=== PATIENT | male | born 1965 | race Caucasian/White ===

== ENCOUNTER 2025-10-13 09:13 | Emergency (ER) | payer MEDICARE, SELFPAY ==
[2025-10-13 09:15] VITALS: BP 137/80; PULSE 92; RESP 18; TEMP 36.4; O2SAT 99
[2025-10-13 09:35] VITALS: BMI 22.7
--- NOTE | 2025-10-13 09:58 | ED.VIS.LOWEX ---
HPI History of Present Illness Chief Complaint: Lower Extremity Injury Informant: patient Narrative Narrative: 60-year-old male with episodic right lateral knee pain and popping, starting this morning when rolling over in bed. Patient reports when it ?pops,? he cannot bear weight. Pain consistently localized to the lateral right knee, sometimes radiating down the lateral mid-lower leg. Prior similar episodes years ago, including locking after intense biking, running uphill, and crouching; took 30 minutes to straighten the leg and later heard a pop allowing motion. Denies pain with foot manipulation during exam and denies pain superior to the knee. Concern that the knee may ?catch.? No recent major trauma reported. [facility] Medical History Neuropathy Home Medications ?Medication ?Instructions ?Recorded ?Last Taken ?Type gabapentin 600 mg tablet 600 mg PO TID PRN neuropathy 10/13/25 Unknown History Allergy/AdvReac Type Severity Reaction Status Date / Time No Known Allergies Allergy Verified 10/13/25 09:17 Social History Smoking Status: Never smoker ROS ROS ED Constitutional Constitutional ED: Denies chills or fever(s) Musculoskeletal Musculoskeletal: Reports extremity pain; Denies neck pain Integumentary Denies Abrasions, rash or wounds Neurologic Neurologic: Denies paresthesias or weakness EXAM Physical Exam Const Vital Signs: 10/13/25 09:15 10/13/25 11:03 Temperature 97.6 F L 97.9 F Temperature Source Oral Oral Pulse Rate 92 70 Respiratory Rate 18 16 Blood Pressure 137/80 H 146/74 H Blood Pressure Mean 99 98 Pulse Ox 99 99 Oxygen Delivery Method Room Air Room Air Positive well nourished and well developed General Appearance ED: well developed and NAD Neck full ROM and supple Back/Spine normal ROM and normal to inspection Extremity normal to inspection and full ROM Extremity Narrative: Nontender right knee throughout including fibular head in the lateral compartment of the lower leg which is normal on inspection. With forced inversion of the right ankle, patient experiences no pain. All compartments are soft and nondistended and nontender including the calf. Extensor mechanism of the knee is intact, there is no effusion. All 4 ligaments are stable with short endpoints and no pain on stressing including negative anterior and posterior drawer signs. With movement and palpation not able to reproduce any of the patient's pain. Neuro oriented x3, no focal motor deficits and no sensory deficits noted Sensorium / Orientation: alert Psych mental status grossly normal and thought process normal Skin no wounds Rashes: no rashes MDM MDM MDM Narrative Medical decision making narrative: 60-year-old male with recurrent episodic right lateral knee pain and popping, onset today while rolling in bed; prior episodes with locking after exertion; pain may radiate down the lateral mid-lower leg; unable to bear weight during episodes. [Pertinent Vital Signs Not Available] Physical Exam: right knee ligaments stable; lateral knee non-tender on palpation; pain with ligament stress; foot / ankle inversion painless. No clinical suspicion for compartment syndrome. [Pertinent Labs Not Available] Imaging Results: X-rays of the right tibia/fibula and knee normal by provider and radiology; joint space normal; lateral aspect appears normal. Differential diagnosis not available. Provider states soft tissue etiology; not patellar dislocation; not likely fibular head subluxation; unlikely iliotibial band involvement; possibilities mentioned include bursitis vs tendinitis without a definitive diagnosis. X-rays obtained. Supportive care advised. Orthopedics referral placed if symptoms persist. Portions of this note were generated using voice recognition software ([employer]). I have reviewed the contents and every effort has been made to ensure accuracy; however, inadvertent errors in grammar, spelling, punctuation, or word choice may occur, that were not noted before signing the document and should not alter the intended clinical meaning. Radiography Diagnostic Testing: Clinical Impression(s) from Imaging Studies Tibia/Fibula X-Ray 10/13/25 10:14 IMPRESSION: NEGATIVE TIBIA AND FIBULA Reading Location: [facility]- Discharge Plan Triage Chief Complaint: Lower Extremity Injury ED Provider: Isra Medina Dx/Rx/DC Orders Clinical Impression: Leg pain, right, Pain in lateral portion of right knee Instructions: Knee Pain Prescriptions: No Action gabapentin 600 mg tablet 600 mg PO TID PRN (Reason: neuropathy) Primary Care Provider: Care Physician,No Primary Referrals: Rene Joseph MD [Med Staff - Active Staff, Orthopedics] Print Language: Turkmen Disposition Disposition: Home, Self Care
--- NOTE | 2025-10-13 10:14 | RAD_ITS ---
PROCEDURE: TIBIA FIBULA 2 VIEWS 10/13/2025 REASON FOR EXAM: PAIN TECHNIQUE: Procedure Code: RADTF Modality: DX Procedure: TIBIA FIBULA 2 VIEWS Laterality: Right tibia and fibula. COMPARISON: None FINDINGS: Bones: No fracture. No suspicious bone lesion. Joints: Normal alignment at the knee and ankle. Soft tissues: Soft tissues are unremarkable. Other: RAD/Tibia & Fibula 2 Views IMPRESSION: NEGATIVE TIBIA AND FIBULA Reading Location: [place] [id number]
[2025-10-13 11:03] VITALS: BP 146/74; PULSE 70; RESP 16; TEMP 36.6; O2SAT 99
[2025-10-13 11:43] VITALS: BP 132/69; PULSE 81; RESP 16; TEMP 36.6; O2SAT 99
== END 2025-10-13 11:44 | disposition home or self-care (01) ==
PROVIDERS: Emergency Provider Emergency Medicine; Visit Provider Emergency Medicine
DX: M79.604 Pain in right leg (principal); M25.561 Pain in right knee
CPT/HCPCS: 73590; 99282